=== PATIENT | female | born 1990 | race Caucasian/White ===

== ENCOUNTER → 2016-12-01 | Outpatient (CLI) | payer OTHER ==
[~2016-12-01] MED LIST: DOCU-131 PO; IBUP-1222 PO; LEVO125T PO; OXYC-302 PO
== END ==
LOC: LAB 10:41
PROVIDERS: ATTEND Family Medicine
DX: N91.2 Amenorrhea, unspecified (principal)
CPT/HCPCS: 36415; 84702

== ENCOUNTER → 2016-12-16 | Outpatient (CLI) | payer OTHER ==
[2016-12-16 08:29] LABS: BLOOD UREA NITROGEN 17 mg/dL (7-18)
[2016-12-16 08:40] LABS: HEMATOCRIT 39.9 % (34.6-47.8); HEMOGLOBIN 13.4 g/dL (11.7-16.4); WHITE BLOOD COUNT 7.6 x10^3/uL (3.4-10)
[2016-12-16 08:41] LABS: ASPARTATE AMINO TRANSFERASE 15 U/L (15-37)
== END | disposition home or self-care (01) ==
LOC: LAB 07:58
PROVIDERS: ATTEND Family Medicine
DX: E03.9 Hypothyroidism, unspecified (principal); E78.5 Hyperlipidemia, unspecified
CPT/HCPCS: 36415; 80053; 80061; 83036; 84443; 85025

== ENCOUNTER → 2017-05-24 | Outpatient (CLI) | payer OTHER ==
[2017-05-24 10:48] LABS: BASOPHILS # (AUTO) 0.02 x10^3/uL (0-0.1); BASOPHILS % (AUTO) 0 % (0-1); EOSINOPHILS # (AUTO) 0.06 x10^3/uL (0-0.4); EOSINOPHILS % (AUTO) 1 % (1-7); LYMPHOCYTES # (AUTO) 1.21 x10^3/uL (1-3.4); LYMPHOCYTES % (AUTO) 15 % (22-44); MD NO; MEAN CORPUSCULAR HEMOGLOBIN 29.2 pg (27.0-34.8); MEAN CORPUSCULAR HGB CONC 34.5 g/dL (32.4-35.8); MEAN CORPUSCULAR VOLUME 84.5 fL (80-100); MEAN PLATELET VOLUME 8.8 fL (7.4-10.4); MONOCYTES # (AUTO) 0.42 x10^3/uL (0.2-0.8); MONOCYTES % (AUTO) 5 % (2-9); NEUTROPHILS % (AUTO) 79 % (42-75); PLATELET COUNT 264 x10^3/uL (130-400); RED BLOOD COUNT 4.61 x10^6/uL (3.82-5.3); RED CELL DISTRIBUTION WIDTH 14.2 % (9.6-15.2)
== END | disposition home or self-care (01) ==
LOC: LAB 10:31
PROVIDERS: ATTEND Obstetrics & Gynecology
DX: Z34.82 Encounter for supervision of other normal pregnancy, second trimester (principal); Z3A.00 Weeks of gestation of pregnancy not specified
CPT/HCPCS: 36415; 85025; 86592; 86762; 86850; 86900; 87086; 87340; 87806; G0475

== ENCOUNTER → 2017-08-22 | Outpatient (CLI) | payer OTHER ==
[2017-08-22 08:32] LABS: MEAN CORPUSCULAR HEMOGLOBIN 29.8 pg (27.0-34.8); MEAN CORPUSCULAR HGB CONC 34.5 g/dL (32.4-35.8); MEAN CORPUSCULAR VOLUME 86.6 fL (80-100); MEAN PLATELET VOLUME 8.6 fL (7.4-10.4); PLATELET COUNT 213 x10^3/uL (130-400); RED BLOOD COUNT 4.03 x10^6/uL (3.82-5.3); RED CELL DISTRIBUTION WIDTH 14.3 % (9.6-15.2)
== END | disposition home or self-care (01) ==
LOC: LAB 07:21
PROVIDERS: ATTEND Obstetrics & Gynecology
DX: Z34.82 Encounter for supervision of other normal pregnancy, second trimester (principal)
CPT/HCPCS: 36415; 82950; 85027; 86592

== ENCOUNTER → 2017-08-31 | Outpatient (CLI) | payer OTHER | END | disposition home or self-care (01) | LOC: LAB 07:17 | PROVIDERS: ATTEND Obstetrics & Gynecology | DX: Z34.82 Encounter for supervision of other normal pregnancy, second trimester (principal); Z3A.00 Weeks of gestation of pregnancy not specified | CPT/HCPCS: 36415; 82951 ==

== ENCOUNTER 2017-11-06 16:20 | Outpatient (CLI) | payer OTHER ==
[~2017-11-06] VITALS: Ht 154.9 cm; Wt 96.8 kg
[2017-11-06 17:38] LABS: FERNING TEST FERNING NOT PRESENT (NEGATIVE)
[2017-11-06 18:25] VITALS: BP 95/54
== END 2017-11-06 18:20 | disposition home or self-care (01) ==
LOC: LDOP 16:20
PROVIDERS: ATTEND Obstetrics & Gynecology
DX: O42.913 Preterm premature rupture of membranes, unspecified as to length of time between rupture and onset of labor, third trimester (principal); Z3A.35 35 weeks gestation of pregnancy
CPT/HCPCS: 59025; 84112; 89060; 99201; G0463; Q0114

== ENCOUNTER 2017-11-29 08:54 | Inpatient (IN) | payer OTHER ==
[~2017-11-29] VITALS: Ht 154.9 cm; Wt 97.3 kg
[2017-11-29] MEDS ORDERED: LACTATED RINGERS 1,000 ML IV SCH ×2 (10:15→10:17)
[2017-11-29] MEDS ORDERED: OXYTOCIN 30U/ 0.9% NaCL 500ML 500 ML IV SCH (10:17)
[2017-11-29] MEDS ORDERED: NEWBORN KIT ONE (10:20)
[2017-11-29] MEDS ORDERED: SODIUM CITRATE/CITRIC ACID 30 ML UDC ONE ×2 (10:20→10:21)
[2017-11-29] MEDS ORDERED: METOCLOPRAMIDE 5 MG/ML, 2ML ONE (10:21)
[2017-11-29] MEDS ORDERED: OXYTOCIN 30U/ 0.9% NaCL 500ML 500 ML ONE (10:21)
[2017-11-29] MEDS ORDERED: SODIUM CITRATE/CITRIC ACID 30 ML UDC PO ONE (10:30)
[2017-11-29] MEDS ORDERED: METOCLOPRAMIDE 5 MG/ML, 2ML IV ONE (10:30)
[2017-11-29] MEDS ORDERED: LACTATED RINGERS 1,000 ML IVBOLUS ONE (10:30)
[2017-11-29] MEDS: PLEASE ENTER HEIGHT AND WEIGHT MC SCH ×2 (11:00→19:00)
[2017-11-29] MEDS ORDERED: hydrALAzine 20 MG/ML, 1ML IV PRN (11:30)
[2017-11-29] MEDS ORDERED: EPHEDRINE 50 MG/ML, 1ML IVPush PRN (11:30)
[2017-11-29] MEDS ORDERED: ONDANSETRON 2MG/ML, 2ML IVPush PRN (11:30)
[2017-11-29] MEDS ORDERED: MEPERIDINE/PF 25MG/0.5ML IVPush PRN (11:30)
[2017-11-29] MEDS ORDERED: PROMETHAZINE 25 MG/ML, 1ML IV PRN (11:30)
[2017-11-29] MEDS ORDERED: MIDAZOLAM 1 MG/ML, 2ML IV PRN (11:30)
[2017-11-29] MEDS ORDERED: OXYcodone 5 MG/5 ML ORAL.SOL UDC PO PRN (11:30)
[2017-11-29] MEDS ORDERED: ALBUTEROL SULFATE 2.5 MG/3 ML NPPB PRN (11:30)
[2017-11-29] MEDS ORDERED: HYDROmorphone 1 MG/ML, 1ML IV PRN (11:30)
[2017-11-29] MEDS ORDERED: FENTANYL PF 100 MCG/2ML IV PRN (11:30)
[2017-11-29] MEDS ORDERED: LABETALOL 5MG/ML, 20ML IV PRN (11:30)
[2017-11-29] MEDS ORDERED: HYDROcodone/APAP 7.5-325MG/15ML UDC PO PRN (11:30)
[2017-11-29] MEDS ORDERED: OXYTOCIN 10 UNITS/ML, 1ML ONE (11:36)
[2017-11-29] MEDS ORDERED: PHENYLEPHRINE 10 MG/ML ONE (11:36)
[2017-11-29] MEDS ORDERED: EPHEDRINE 50 MG/ML, 1ML ONE (11:36)
[2017-11-29] MEDS ORDERED: DEXAMETHASONE 4 MG/ML, 1ML ONE (11:36)
[2017-11-29] MEDS ORDERED: KETOROLAC 30 MG/1 ML ONE (11:36)
[2017-11-29] MEDS ORDERED: CEFAZOLIN 1,000 MG ONE (11:36)
[2017-11-29] MEDS ORDERED: FENTANYL PF 100 MCG/2ML ONE (11:36)
[2017-11-29] MEDS ORDERED: ONDANSETRON 2MG/ML, 2ML ONE (11:36)
[2017-11-29 11:49] LABS: BASOPHILS # (AUTO) 0.03 x10^3/uL (0-0.1); BASOPHILS % (AUTO) 0 % (0-1); EOSINOPHILS # (AUTO) 0.04 x10^3/uL (0-0.4); EOSINOPHILS % (AUTO) 0 % (1-7); LYMPHOCYTES # (AUTO) 1.33 x10^3/uL (1-3.4); LYMPHOCYTES % (AUTO) 15 % (22-44); MD NO; MEAN CORPUSCULAR HEMOGLOBIN 29.4 pg (27.0-34.8); MEAN CORPUSCULAR HGB CONC 34.2 g/dL (32.4-35.8); MEAN CORPUSCULAR VOLUME 85.8 fL (80-100); MEAN PLATELET VOLUME 9.1 fL (7.4-10.4); MONOCYTES # (AUTO) 0.54 x10^3/uL (0.2-0.8); MONOCYTES % (AUTO) 6 % (2-9); NEUTROPHILS # (AUTO) 6.86 x10^3/uL (1.8-6.8); NEUTROPHILS % (AUTO) 78 % (42-75); PLATELET COUNT 192 x10^3/uL (130-400); RED BLOOD COUNT 4.42 x10^6/uL (3.82-5.3); RED CELL DISTRIBUTION WIDTH 13.9 % (9.6-15.2)
[2017-11-29] MEDS ORDERED: HYDROmorphone 2 MG/ML, 1ML ONE (13:19)
[2017-11-29] MEDS: OXYTOCIN 30U/ 0.9% NaCL 500ML 500 ML IV SCH ×2 (13:52→23:52)
[2017-11-29] MEDS: LACTATED RINGERS 1,000 ML IV SCH ×4 (13:52→23:52)
[2017-11-29] MEDS ORDERED: ONDANSETRON 2MG/ML, 2ML IV PRN (14:00)
[2017-11-29] MEDS ORDERED: ACETAMINOPHEN 325 MG TABLET PO PRN ×2 (14:00)
[2017-11-29] MEDS ORDERED: morphine SULFATE 10 MG/ML, 1ML IVPush PRN (14:00)
[2017-11-29] MEDS ORDERED: CALCIUM CARBONATE 500 MG TAB.CHEW PO PRN (14:00)
[2017-11-29] MEDS ORDERED: OXYcodone/APAP 5/325MG TABLET PO PRN (14:00)
[2017-11-29] MEDS ORDERED: MISOPROSTOL 200 MCG TABLET PR PRN (14:00)
[2017-11-29] MEDS ORDERED: METOCLOPRAMIDE 5 MG/ML, 2ML IV PRN (14:00)
[2017-11-29] MEDS ORDERED: OXYcodone 5 MG/5 ML ORAL.SOL UDC ONE (14:34)
[2017-11-29 16:00] VITALS: BP 100/62
[2017-11-29 18:50] VITALS: BP 101/66
[2017-11-29] MEDS: KETOROLAC 30 MG/1 ML IV PRN (19:40)
[2017-11-29 21:36] LABS: BASOPHILS # (AUTO) 0.02 x10^3/uL (0-0.1); BASOPHILS % (AUTO) 0 % (0-1); EOSINOPHILS % (AUTO) 0 % (1-7); LYMPHOCYTES # (AUTO) 0.81 x10^3/uL (1-3.4); LYMPHOCYTES % (AUTO) 6 % (22-44); MD NO; MEAN CORPUSCULAR HEMOGLOBIN 29.7 pg (27.0-34.8); MEAN CORPUSCULAR HGB CONC 34.5 g/dL (32.4-35.8); MEAN CORPUSCULAR VOLUME 86.2 fL (80-100); MEAN PLATELET VOLUME 8.7 fL (7.4-10.4); MONOCYTES # (AUTO) 0.31 x10^3/uL (0.2-0.8); MONOCYTES % (AUTO) 2 % (2-9); NEUTROPHILS # (AUTO) 12.07 x10^3/uL (1.8-6.8); NEUTROPHILS % (AUTO) 91 % (42-75); PLATELET COUNT 206 x10^3/uL (130-400); RED BLOOD COUNT 3.98 x10^6/uL (3.82-5.3); RED CELL DISTRIBUTION WIDTH 13.9 % (9.6-15.2)
[2017-11-29] MEDS: OXYcodone/APAP 5/325MG TABLET PO PRN (22:04)
[2017-11-29] MEDS: DOCUSATE 100 MG CAPSULE PO PRN (22:04)
[2017-11-30 00:15] VITALS: BP 97/61
[2017-11-30] MEDS: KETOROLAC 30 MG/1 ML IV PRN (02:48)
[2017-11-30] MEDS: PLEASE ENTER HEIGHT AND WEIGHT MC SCH (03:00)
[2017-11-30 04:20] VITALS: BP 91/60
[2017-11-30] MEDS: LACTATED RINGERS 1,000 ML IV SCH ×7 (05:52→22:47)
[2017-11-30 07:15] VITALS: BP 90/58
[2017-11-30] MEDS: PRENATAL VIT/IRON/FA 1 EACH TABLET PO SCH (09:00)
[2017-11-30] MEDS: OXYTOCIN 30U/ 0.9% NaCL 500ML 500 ML IV SCH ×3 (09:52→22:46)
[2017-11-30] MEDS: OXYcodone/APAP 5/325MG TABLET PO PRN (16:02)
[2017-11-30 19:15] VITALS: BP 109/73
[2017-11-30] MEDS: IBUPROFEN 600 MG TABLET PO PRN (19:55)
[2017-11-30] MEDS: DOCUSATE 100 MG CAPSULE PO PRN (19:56)
[2017-12-01] MEDS: OXYcodone/APAP 5/325MG TABLET PO PRN (03:41)
[2017-12-01] MEDS: IBUPROFEN 600 MG TABLET PO PRN (03:43)
[2017-12-01] MEDS ORDERED: LEVOTHYROXINE 137 MCG TABLET HOMEMEDPO SCH (06:00)
[2017-12-01 07:30] VITALS: BP 98/66
[2017-12-01] MEDS: PRENATAL VIT/IRON/FA 1 EACH TABLET PO SCH (08:19)
[2017-12-01] MEDS: DOCUSATE 100 MG CAPSULE PO PRN (08:19)
[2017-12-01] MEDS ORDERED: IBUP-1222 PO (10:48)
[2017-12-01] MEDS ORDERED: OXYC-302 PO (10:50)
== END 2017-12-01 14:00 | disposition home or self-care (01) | DRG 765 ==
LOC: LDIP 10:01 → 2NW 16:00
PROVIDERS: ADMIT Obstetrics & Gynecology; ATTEND Obstetrics & Gynecology
PROC: 10D00Z1 Extraction of Products of Conception, Low, Open Approach (ICD-10-PCS; principal; 2017-11-29)
DX: O34.211 Maternal care for low transverse scar from previous cesarean delivery (principal); Z68.41 Body mass index [BMI] 40.0-44.9, adult; O99.284 Endocrine, nutritional and metabolic diseases complicating childbirth; O69.81X0 Labor and delivery complicated by cord around neck, without compression, not applicable or unspecified; E03.9 Hypothyroidism, unspecified; O99.214 Obesity complicating childbirth; E66.9 Obesity, unspecified; Z79.899 Other long term (current) drug therapy; Z37.0 Single live birth; Z3A.39 39 weeks gestation of pregnancy
CPT/HCPCS: 36415; 85025; 86850; 86900; G0378; J0690; J1100; J1170; J1885; J2405; J3010; J2370; J2590; J2765; J7120

== ENCOUNTER → 2018-02-27 | Outpatient (CLI) | payer OTHER ==
[2018-02-27 09:16] LABS: BASOPHILS # (AUTO) 0.04 x10^3/uL (0-0.1); BASOPHILS % (AUTO) 1 % (0-1); EOSINOPHILS # (AUTO) 0.11 x10^3/uL (0-0.4); EOSINOPHILS % (AUTO) 1 % (1-7); LYMPHOCYTES # (AUTO) 1.82 x10^3/uL (1-3.4); LYMPHOCYTES % (AUTO) 21 % (22-44); MD NO; MEAN CORPUSCULAR HEMOGLOBIN 29.3 pg (27.0-34.8); MEAN CORPUSCULAR HGB CONC 34.3 g/dL (32.4-35.8); MEAN CORPUSCULAR VOLUME 85.4 fL (80-100); MEAN PLATELET VOLUME 8.4 fL (7.4-10.4); MONOCYTES # (AUTO) 0.48 x10^3/uL (0.2-0.8); MONOCYTES % (AUTO) 6 % (2-9); NEUTROPHILS # (AUTO) 6.12 x10^3/uL (1.8-6.8); NEUTROPHILS % (AUTO) 71 % (42-75); PLATELET COUNT 290 x10^3/uL (130-400); RED BLOOD COUNT 4.44 x10^6/uL (3.82-5.3); RED CELL DISTRIBUTION WIDTH 13.8 % (9.6-15.2)
[2018-02-27 09:22] LABS: ALBUMIN 3.9 g/dL (3.4-5.0); ANION GAP 6 mmol/L (5-15); CALCIUM 8.8 mg/dL (8.5-10.1); CHLORIDE 109 mmol/L (98-107)
[2018-02-27 09:49] LABS: % IRON SATURATION 13 % (20-55); ALANINE AMINOTRANSFERASE 23 U/L (12-78); ALKALINE PHOSPHATASE 123 U/L (45-117); BILIRUBIN,TOTAL 0.7 mg/dL (0.2-1.0); CREATININE 0.71 mg/dL (0.55-1.02); FREE T4 (FREE THYROXINE) 0.79 ng/dL (0.76-1.46); IRON LEVEL 44 mcg/dL (50-170); TOTAL IRON BINDING CAPACITY 346 mcg/dL (250-450); TOTAL PROTEIN 8.2 g/dL (6.4-8.2); TRANSFERRIN 271 mg/dL (200-360)
[2018-02-27 10:00] LABS: FOLATE LEVEL > 20.0 ng/mL (3.1-17.5)
== END | disposition home or self-care (01) ==
LOC: LAB 08:49
PROVIDERS: ATTEND Nurse Practitioner Primary Care
DX: Z12.4 Encounter for screening for malignant neoplasm of cervix (principal); Z13.220 Encounter for screening for lipoid disorders; Z23 Encounter for immunization; E03.9 Hypothyroidism, unspecified; R53.83 Other fatigue
CPT/HCPCS: 36415; 80053; 82306; 82607; 82728; 82746; 83540; 83550; 83735; 84207; 84425; 84439; 84443; 84466; 84481; 85025

== ENCOUNTER → 2018-04-10 | Outpatient (CLI) | payer OTHER | END | disposition home or self-care (01) | LOC: CFH 07:06 | PROVIDERS: ATTEND Nurse Practitioner Primary Care | DX: M62.08 Separation of muscle (nontraumatic), other site (principal) | CPT/HCPCS: 76705 ==

== ENCOUNTER → 2018-04-24 | Outpatient (CLI) | payer OTHER | END | disposition home or self-care (01) | LOC: LAB 09:40 | PROVIDERS: ATTEND Nurse Practitioner Primary Care | DX: E03.9 Hypothyroidism, unspecified (principal); E61.1 Iron deficiency; E55.9 Vitamin D deficiency, unspecified | CPT/HCPCS: 36415; 84443; 86376 ==

== ENCOUNTER → 2018-06-14 | Outpatient (CLI) | payer OTHER | END | disposition home or self-care (01) | LOC: LAB 09:17 | PROVIDERS: ATTEND Nurse Practitioner Primary Care | DX: Z12.4 Encounter for screening for malignant neoplasm of cervix (principal); Z13.220 Encounter for screening for lipoid disorders; R53.83 Other fatigue; E03.9 Hypothyroidism, unspecified; E61.1 Iron deficiency; E55.9 Vitamin D deficiency, unspecified; R79.9 Abnormal finding of blood chemistry, unspecified; R22.9 Localized swelling, mass and lump, unspecified | CPT/HCPCS: 36415; 84443 ==

== ENCOUNTER → 2018-08-27 | Outpatient (CLI) | payer OTHER | END | disposition home or self-care (01) | LOC: LAB 14:44 | PROVIDERS: ATTEND Nurse Practitioner Primary Care | DX: Z33.1 Pregnant state, incidental (principal) | CPT/HCPCS: 36415; 84702 ==

== ENCOUNTER → 2018-08-30 | Outpatient (CLI) | payer OTHER | END | disposition home or self-care (01) | LOC: CFH 08:39 | PROVIDERS: ATTEND Nurse Practitioner Primary Care | DX: Z13.220 Encounter for screening for lipoid disorders (principal); Z12.4 Encounter for screening for malignant neoplasm of cervix; E03.9 Hypothyroidism, unspecified; E61.1 Iron deficiency; E55.9 Vitamin D deficiency, unspecified; R79.9 Abnormal finding of blood chemistry, unspecified; R22.9 Localized swelling, mass and lump, unspecified; R53.83 Other fatigue | CPT/HCPCS: 36415; 84443 ==

== ENCOUNTER 2018-10-27 11:11 | Outpatient (CLI) | payer OTHER | END 2018-10-27 23:59 | disposition home or self-care (01) | LOC: LAB 11:11 | PROVIDERS: ATTEND Nurse Practitioner Primary Care | DX: E03.9 Hypothyroidism, unspecified (principal); E55.9 Vitamin D deficiency, unspecified; E61.1 Iron deficiency; R53.83 Other fatigue; R79.9 Abnormal finding of blood chemistry, unspecified; R22.9 Localized swelling, mass and lump, unspecified | CPT/HCPCS: 36415; 84443 ==

== ENCOUNTER 2019-01-13 18:51 | Emergency (ER) | payer OTHER ==
[~2019-01-13] VITALS: Ht 154.9 cm; Wt 97.6 kg
[2019-01-13 20:36] VITALS: BP 124/74
== END 2019-01-13 20:38 | disposition home or self-care (01) ==
LOC: ED 20:32
DX: J06.9 Acute upper respiratory infection, unspecified (principal); E03.9 Hypothyroidism, unspecified; Z90.49 Acquired absence of other specified parts of digestive tract
CPT/HCPCS: 71046; 93005; 99283

== ENCOUNTER 2019-04-05 16:07 | Outpatient (CLI) | payer OTHER | END 2019-04-05 23:59 | disposition home or self-care (01) | LOC: RAD 16:07 | PROVIDERS: ATTEND Nurse Practitioner Primary Care | DX: M79.671 Pain in right foot (principal); E03.9 Hypothyroidism, unspecified ==

== ENCOUNTER → 2019-04-16 | Outpatient (CLI) | payer OTHER ==
[2019-04-16 14:36] LABS: BASOPHILS # (AUTO) 0.03 x10^3/uL (0-0.1); BASOPHILS % (AUTO) 0 % (0-1); EOSINOPHILS % (AUTO) 1 % (1-7); LYMPHOCYTES # (AUTO) 1.63 x10^3/uL (1-3.4); LYMPHOCYTES % (AUTO) 20 % (22-44); MD NO; MEAN CORPUSCULAR HEMOGLOBIN 27.8 pg (27.0-34.8); MEAN CORPUSCULAR HGB CONC 33.3 g/dL (32.4-35.8); MEAN CORPUSCULAR VOLUME 83.6 fL (80-100); MEAN PLATELET VOLUME 8.9 fL (7.4-10.4); MONOCYTES # (AUTO) 0.39 x10^3/uL (0.2-0.8); MONOCYTES % (AUTO) 5 % (2-9); NEUTROPHILS # (AUTO) 5.89 x10^3/uL (1.8-6.8); NEUTROPHILS % (AUTO) 73 % (42-75); PLATELET COUNT 327 x10^3/uL (130-400)
[2019-04-16 14:44] LABS: ALBUMIN 3.9 g/dL (3.4-5.0); ANION GAP 7 mmol/L (5-15); CALCIUM 8.8 mg/dL (8.5-10.1); CHLORIDE 106 mmol/L (98-107); CHOLESTEROL, TOTAL 160 mg/dL (140-239); TRIGLYCERIDES 138 mg/dL (50-200); VLDL CHOLESTEROL 28 mg/dL (0-25)
[2019-04-16 14:48] LABS: MICROSCOPIC NOT IND
[2019-04-16 15:11] LABS: % IRON SATURATION 12 % (20-55); ALANINE AMINOTRANSFERASE 23 U/L (12-78); ALKALINE PHOSPHATASE 105 U/L (45-117); BILIRUBIN,TOTAL 0.8 mg/dL (0.2-1.0); CHOL/HDL RATIO 3.3; CREATININE 0.73 mg/dL (0.55-1.02); FOLATE LEVEL 10.2 ng/mL (3.1-17.5); HDL CHOL % 31 % (28-40); HDL CHOLESTEROL (DIRECT) 49 mg/dL (40-60); IRON LEVEL 44 mcg/dL (50-170); LDL CHOLESTEROL,CALCULATED 83 mg/dL (54-169); LDL/HDL RATIO 1.7 (0.5-3.0); TOTAL IRON BINDING CAPACITY 377 mcg/dL (250-450); TOTAL PROTEIN 8.4 g/dL (6.4-8.2); TRANSFERRIN 306 mg/dL (200-360)
[2019-04-16 15:21] LABS: CULTURE INDICATED? NO
== END | disposition home or self-care (01) ==
LOC: LAB 13:56
PROVIDERS: ATTEND Nurse Practitioner Primary Care
DX: Z13.220 Encounter for screening for lipoid disorders (principal); R53.83 Other fatigue; E55.9 Vitamin D deficiency, unspecified; M79.671 Pain in right foot; E03.9 Hypothyroidism, unspecified; E61.1 Iron deficiency; Z79.899 Other long term (current) drug therapy; Z83.3 Family history of diabetes mellitus; Z84.0 Family history of diseases of the skin and subcutaneous tissue
CPT/HCPCS: 36415; 80053; 80061; 81003; 82525; 82607; 82652; 82728; 82746; 83036; 83540; 83550; 84207; 84425; 84439; 84443; 84466; 84481; 84630; 85025; 86225; 86235; 86800

== ENCOUNTER → 2019-05-30 | Outpatient (CLI) | payer OTHER ==
[2019-05-30 16:07] LABS: FREE T4 (FREE THYROXINE) 1.44 ng/dL (0.76-1.46)
== END | disposition home or self-care (01) ==
LOC: CFH 13:00
PROVIDERS: ATTEND Nurse Practitioner Primary Care
DX: Z13.220 Encounter for screening for lipoid disorders (principal); R53.83 Other fatigue; E55.9 Vitamin D deficiency, unspecified; M79.671 Pain in right foot; E03.9 Hypothyroidism, unspecified; E61.1 Iron deficiency
CPT/HCPCS: 36415; 82728; 83540; 83550; 84439; 84443; 84466; 84481

== ENCOUNTER → 2019-11-04 | Outpatient (CLI) | payer OTHER | END | disposition home or self-care (01) | LOC: CFH 07:11 | PROVIDERS: ATTEND Nurse Practitioner Primary Care | DX: N63.20 Unspecified lump in the left breast, unspecified quadrant (principal) | CPT/HCPCS: 76642 ==

== ENCOUNTER 2020-01-04 19:25 | Emergency (ER) | payer OTHER ==
[~2020-01-04] VITALS: Ht 154.9 cm; Wt 96.0 kg
[2020-01-04 19:26] VITALS: BP 124/78
[2020-01-04] MEDS ORDERED: KETOROLAC 30 MG/1 ML IM ONE (20:00)
[2020-01-04] MEDS ORDERED: DIAZEPAM 5 MG TABLET PO ONE (20:00)
--- NOTE | 2020-01-04 20:01 | NUR ---
PT C/O LOW BACK PAIN X1 DAY, CURRENTLY ON MENSTRUAL PERIOD STARTED 01/02/20. URINE SAMPLE COLLECTED.
[2020-01-04 20:12] LABS: HCG UR SG 1.014 (1.003-1.030); MICROSCOPIC AUTO
[2020-01-04] MEDS ORDERED: DIAZEPAM 5 MG TABLET ONE (20:22)
[2020-01-04] MEDS ORDERED: KETOROLAC 30 MG/1 ML ONE (20:22)
== END 2020-01-04 21:35 | disposition home or self-care (01) ==
LOC: ED 19:46
DX: M54.5 Low back pain (principal); R11.0 Nausea; E03.9 Hypothyroidism, unspecified; Z90.49 Acquired absence of other specified parts of digestive tract
CPT/HCPCS: 81001; 81025; 87086; 96372; 99283; J1885

== ENCOUNTER → 2020-04-14 | Outpatient (CLI) | payer OTHER ==
[~2020-04-14] MED LIST changes: -OXYC-302 PO; +OXYC1TAB14 PO
[2020-04-14 14:45] LABS: BASOPHILS % (AUTO) 1 % (0-1); EOSINOPHILS % (AUTO) 1 % (1-7); LYMPHOCYTES % (AUTO) 21 % (22-44); MEAN CORPUSCULAR HEMOGLOBIN 28.1 pg (27.0-34.8); MEAN CORPUSCULAR HGB CONC 33.9 g/dL (32.4-35.8); MEAN PLATELET VOLUME 8.3 fL (7.4-10.4); MONOCYTES % (AUTO) 6 % (2-9); NEUTROPHILS % (AUTO) 72 % (42-75); PLATELET COUNT 294 x10^3/uL (130-400); RED BLOOD COUNT 4.64 x10^6/uL (3.82-5.3); RED CELL DISTRIBUTION WIDTH 14.2 % (9.6-15.2)
[2020-04-14 14:47] LABS: MD NO
[2020-04-14 14:49] LABS: MICROSCOPIC NOT IND
[2020-04-14 14:56] LABS: ALBUMIN 3.7 g/dL (3.4-5.0); ANION GAP 7 mmol/L (5-15); CALCIUM 8.6 mg/dL (8.5-10.1); CHLORIDE 107 mmol/L (98-107)
[2020-04-14 15:08] LABS: % IRON SATURATION 17 % (20-55); ALANINE AMINOTRANSFERASE 24 U/L (12-78); ALKALINE PHOSPHATASE 107 U/L (45-117); CREATININE 0.73 mg/dL (0.55-1.02); FREE T4 (FREE THYROXINE) 1.42 ng/dL (0.76-1.46); IRON LEVEL 57 mcg/dL (50-170); TOTAL IRON BINDING CAPACITY 337 mcg/dL (250-450); TOTAL PROTEIN 7.8 g/dL (6.4-8.2); TRANSFERRIN 272 mg/dL (200-360)
== END | disposition home or self-care (01) ==
LOC: LAB 14:21
PROVIDERS: ATTEND Nurse Practitioner Primary Care
DX: Z13.220 Encounter for screening for lipoid disorders (principal); E03.9 Hypothyroidism, unspecified; E61.1 Iron deficiency; E55.9 Vitamin D deficiency, unspecified; N63.0 Unspecified lump in unspecified breast; Z79.899 Other long term (current) drug therapy
CPT/HCPCS: 36415; 80053; 81003; 82652; 82728; 83540; 83550; 84439; 84443; 84466; 84481; 85025

== ENCOUNTER → 2020-09-17 | Outpatient (CLI) | payer OTHER ==
[2020-09-17 09:12] LABS: BASOPHILS % (AUTO) 1 % (0-1); EOSINOPHILS % (AUTO) 2 % (1-7); LYMPHOCYTES % (AUTO) 18 % (22-44); MEAN CORPUSCULAR HEMOGLOBIN 28.2 pg (27.0-34.8); MEAN CORPUSCULAR HGB CONC 33.9 g/dL (32.4-35.8); MEAN PLATELET VOLUME 8.4 fL (7.4-10.4); MONOCYTES % (AUTO) 7 % (2-9); NEUTROPHILS % (AUTO) 73 % (42-75); PLATELET COUNT 315 x10^3/uL (130-400); RED BLOOD COUNT 4.67 x10^6/uL (3.82-5.3); RED CELL DISTRIBUTION WIDTH 13.7 % (9.6-15.2)
[2020-09-17 09:21] LABS: ALBUMIN 3.7 g/dL (3.4-5.0); ANION GAP 8 mmol/L (5-15); CALCIUM 8.9 mg/dL (8.5-10.1); CHLORIDE 109 mmol/L (98-107)
[2020-09-17 09:27] LABS: MICROSCOPIC INDICATED
[2020-09-17 09:31] LABS: % IRON SATURATION 21 % (20-55); ALANINE AMINOTRANSFERASE 27 U/L (12-78); ALKALINE PHOSPHATASE 97 U/L (45-117); CREATININE 0.73 mg/dL (0.55-1.02); FREE T4 (FREE THYROXINE) 0.99 ng/dL (0.76-1.46); IRON LEVEL 78 mcg/dL (50-170); TOTAL IRON BINDING CAPACITY 370 mcg/dL (250-450); TOTAL PROTEIN 8.1 g/dL (6.4-8.2); TRANSFERRIN 284 mg/dL (200-360)
== END | disposition home or self-care (01) ==
LOC: LAB 09-16 09:55
PROVIDERS: ATTEND Nurse Practitioner Primary Care
DX: Z13.220 Encounter for screening for lipoid disorders (principal); E61.1 Iron deficiency; E55.9 Vitamin D deficiency, unspecified; R21 Rash and other nonspecific skin eruption; E03.9 Hypothyroidism, unspecified; N63.0 Unspecified lump in unspecified breast; Z79.899 Other long term (current) drug therapy
CPT/HCPCS: 36415; 80053; 80061; 81001; 82652; 82728; 83540; 83550; 83704; 84439; 84443; 84466; 84481; 85025; 87086

== ENCOUNTER → 2020-10-13 | Outpatient (CLI) | payer OTHER ==
[~2020-10-13] MED LIST changes: +LIDOCAINE-MPF 1%, 5ML ONE
== END | disposition home or self-care (01) ==
LOC: RAD 13:28
PROVIDERS: ATTEND Nurse Practitioner Primary Care
DX: E04.1 Nontoxic single thyroid nodule (principal); C73 Malignant neoplasm of thyroid gland
CPT/HCPCS: 10005; 88172; 88173

== ENCOUNTER → 2020-11-02 | Outpatient (CLI) | payer OTHER ==
[~2020-11-02] MED LIST changes: -LIDOCAINE-MPF 1%, 5ML ONE
[2020-11-02 16:50] LABS: FREE T4 (FREE THYROXINE) 1.6 ng/dL (0.76-1.46)
== END | disposition home or self-care (01) ==
LOC: LAB 16:08
PROVIDERS: ATTEND Nurse Practitioner Primary Care
DX: Z13.220 Encounter for screening for lipoid disorders (principal); E03.9 Hypothyroidism, unspecified; E61.1 Iron deficiency; E78.2 Mixed hyperlipidemia; E55.9 Vitamin D deficiency, unspecified; E04.1 Nontoxic single thyroid nodule; K59.00 Constipation, unspecified; N63.0 Unspecified lump in unspecified breast; M25.571 Pain in right ankle and joints of right foot; Z71.3 Dietary counseling and surveillance; Z79.899 Other long term (current) drug therapy
CPT/HCPCS: 36415; 84439; 84443; 84481

== ENCOUNTER 2020-11-11 14:56 | Outpatient (CLI) | payer OTHER ==
[2020-11-11] MEDS ORDERED: LEVO137T2 PO (15:25)
[2020-11-11] MEDS ORDERED: MULT-257 PO (15:57)
[2020-11-11] MEDS ORDERED: ASCO1TAB4 PO (15:57)
[2020-11-11] MEDS ORDERED: CHOL10003 PO (15:57)
[2020-11-11] MEDS ORDERED: CYAN50003 PO (15:57)
[2020-11-11] MEDS ORDERED: TURM500C4 PO (15:57)
== END 2020-11-11 23:59 | disposition home or self-care (01) ==
LOC: STAR 14:56
PROVIDERS: ATTEND Surgery
DX: Z01.812 Encounter for preprocedural laboratory examination (principal); Z20.822 Contact with and (suspected) exposure to COVID-19; C73 Malignant neoplasm of thyroid gland
CPT/HCPCS: 36415; 84432; 86800; U0003; U0005

== ENCOUNTER 2020-11-16 10:12 | Day surgery (SDC) | payer OTHER ==
[~2020-11-16] VITALS: Ht 154.9 cm; Wt 94.0 kg
[~2020-11-16 10:12] MED LIST changes: +ASCO1TAB4 PO; +CHOL10003 PO; +CYAN50003 PO; +LEVO137T2 PO; +MULT-257 PO; +OXYC1TAB12 PO; -OXYC1TAB14 PO; +TURM500C4 PO
[2020-11-16 10:43] VITALS: BP 105/72
[2020-11-16] MEDS ORDERED: CHLORHEXIDINE 15 ML UDC ONE (10:46)
[2020-11-16 10:56] LABS: HCG UR SG 1.029 (1.003-1.030)
[2020-11-16] MEDS ORDERED: LACTATED RINGERS 1,000 ML IV SCH (11:00)
[2020-11-16] MEDS ORDERED: CHLORHEXIDINE 15 ML UDC PO ONE (11:00)
[2020-11-16] MEDS ORDERED: PROPOFOL 10 MG/ML, 20ML ONE (12:55)
[2020-11-16] MEDS ORDERED: GLYCOPYRROLATE 0.2MG/1ML, 5ML ONE (12:55)
[2020-11-16] MEDS ORDERED: FENTANYL PF 100 MCG/2ML ONE ×4 (12:55→14:38)
[2020-11-16] MEDS ORDERED: MIDAZOLAM 1 MG/ML, 2ML ONE (12:55)
[2020-11-16] MEDS ORDERED: ONDANSETRON 2MG/ML, 2ML ONE (12:55)
[2020-11-16] MEDS ORDERED: NEOSTIGMINE 1 MG/ML, 10ML ONE (12:55)
[2020-11-16] MEDS ORDERED: SUCCINYLCHOLINE 20 MG/ML, 10ML ONE (12:55)
[2020-11-16] MEDS ORDERED: ROCURONIUM 10MG/ML,5ML ONE (12:55)
[2020-11-16] MEDS ORDERED: DEXAMETHASONE 4 MG/ML, 1ML ONE (13:37)
[2020-11-16] MEDS ORDERED: HYDR-2214 PO (13:41)
[2020-11-16] MEDS ORDERED: hydrALAzine 20 MG/ML, 1ML IV PRN (14:00)
[2020-11-16] MEDS ORDERED: PROMETHAZINE 25 MG/ML, 1ML IVPush PRN (14:00)
[2020-11-16] MEDS ORDERED: ACETAMINOPHEN 325 MG TABLET PO PRN (14:00)
[2020-11-16] MEDS ORDERED: OXYcodone 5 MG/5 ML ORAL.SOL UDC PO PRN (14:00)
[2020-11-16] MEDS ORDERED: HYDROmorphone 1 MG/ML, 1ML INJ IVPush PRN (14:00)
[2020-11-16] MEDS ORDERED: LABETALOL 5MG/ML, 20ML IV PRN (14:00)
[2020-11-16] MEDS ORDERED: HALOPERIDOL 5 MG/ML IV PRN (14:00)
[2020-11-16] MEDS ORDERED: MEPERIDINE/PF 25MG/0.5ML IVPush PRN (14:00)
[2020-11-16] MEDS ORDERED: morphine SULFATE 10 MG/ML, 1ML IVPush PRN (14:00)
[2020-11-16] MEDS ORDERED: OXYcodone 5 MG/5 ML ORAL.SOL UDC ONE (14:38)
[2020-11-16] MEDS ORDERED: ACETAMINOPHEN 650 MG/20.3 ML UDC ONE (14:39)
[2020-11-16] MEDS: FENTANYL PF 100 MCG/2ML IV PRN ×3 (14:45→15:10)
== END 2020-11-16 16:45 | disposition home or self-care (01) ==
LOC: OUT 10:12
PROVIDERS: ATTEND Surgery
DX: C73 Malignant neoplasm of thyroid gland (principal); E06.3 Autoimmune thyroiditis; Z79.899 Other long term (current) drug therapy; Z98.890 Other specified postprocedural states
CPT/HCPCS: 60252; 81025; 88305; 88307; J0330; J1100; J2250; J2405; J2704; J2710; J3010; J7120

== ENCOUNTER → 2020-12-10 | Outpatient (CLI) | payer OTHER ==
[~2020-12-10] MED LIST changes: +HYDR-2214 PO
[2020-12-10 08:38] LABS: FREE T4 (FREE THYROXINE) 1.55 ng/dL (0.76-1.46)
== END | disposition home or self-care (01) ==
LOC: LAB 08:01
PROVIDERS: ATTEND Nurse Practitioner Primary Care
DX: Z13.220 Encounter for screening for lipoid disorders (principal); C73 Malignant neoplasm of thyroid gland; E04.1 Nontoxic single thyroid nodule; E55.9 Vitamin D deficiency, unspecified; E03.9 Hypothyroidism, unspecified; E61.1 Iron deficiency; E78.2 Mixed hyperlipidemia; K59.00 Constipation, unspecified; Z71.3 Dietary counseling and surveillance; M25.571 Pain in right ankle and joints of right foot; N63.0 Unspecified lump in unspecified breast; Z79.899 Other long term (current) drug therapy
CPT/HCPCS: 36415; 82306; 82652; 83036; 84439; 84443; 84481